=== PATIENT | male | born 2000 | race Caucasian/White ===

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

== ENCOUNTER 2019-06-30 17:25 | Emergency (ER) | payer OTHER ==
[~2019-06-30] VITALS: Ht 177.8 cm; Wt 72.6 kg
[2019-06-30 17:37] VITALS: BP 131/61
--- NOTE | 2019-06-30 17:47 | NUR ---
19 Y/O MALE C/O COUGH, HEADACHE, AND SORE THROAT. STATES DRY, HACKING COUGH. DENIES NASAL CONGESTION. STATES FEVER AND CHILLS SINCE THIS MORNING. DENIES N/V/D. RR EVEN AND UNLABORED, NO ACCESSORY MUSCLE USE. STATES HE HAS NOT TAKEN ANY MEDICATIONS TODAY. SITTING IN D[place] CALM AND PLEASANT. VSS MEDHX: DENIES ALLERGIES: NKA
[2019-06-30 18:32] VITALS: BP 131/61
--- NOTE | 2019-06-30 18:32 | NUR ---
Patient discharged with v/s stable. Written and verbal after care instructions given and explained. Patient alert, oriented and verbalized understanding of instructions. Ambulatory with steady gait. All questions addressed prior to discharge. ID band removed. Patient advised to follow up with PMD. Rx of Ibuprofen 600mg and Promethazine DM 6.25mg was given. Patient educated on indication of medication including possible reaction and side effects. Opportunity to ask questions provided and answered.
== END 2019-06-30 18:32 | disposition home or self-care (01) ==
LOC: MED 17:25
DX: J06.9 Acute upper respiratory infection, unspecified (principal)
CPT/HCPCS: 99283

== ENCOUNTER 2019-07-25 16:02 | Emergency (ER) | payer OTHER ==
[~2019-07-25] VITALS: Ht 177.8 cm; Wt 76.2 kg
[2019-07-25 16:06] VITALS: BP 123/76
--- NOTE | 2019-07-25 16:10 | NUR ---
PT PLACED IN BED 12.
--- NOTE | 2019-07-25 16:12 | NUR ---
Pt c/o left wrist pain x4 days s/p boxing. Denies hx of injury/trauma or fracture on the same wrist. +1 edema on ulnar-sided wrist w/o erthyma, discoloration, or deformity. Reduced ROM noticed. PT DENIES ANY FEVER, CP, SOB, OR COUGH AT THIS TIME; PATIENT STATES PAIN OF 6/10 AT THIS TIME; VSS; PATIENT POSITIONED FOR COMFORT; HOB ELEVATED; BEDRAILS UP X1; BED DOWN. ER MD MADE AWARE OF PT STATUS.
[2019-07-25] MEDS ORDERED: IBUPROFEN 600 MG TAB PO ONE (16:15)
--- NOTE | 2019-07-25 16:48 | NUR ---
JAMIE WRAP PLACED ON PT L WRIST. +CSM
[2019-07-25 16:54] VITALS: BP 120/71
--- NOTE | 2019-07-25 16:54 | NUR ---
Patient discharged with v/s stable. Written and verbal after care instructions given and explained. Patient alert, oriented and verbalized understanding of instructions. Ambulatory with steady gait. All questions addressed prior to discharge. ID band removed. Patient advised to follow up with PMD. Rx of MOTRIN given. Patient educated on indication of medication including possible reaction and side effects. Opportunity to ask questions provided and answered. \ CMS INTACT AFTER JAMIE WRAP APPLICATION BY EMT.
== END 2019-07-25 16:54 | disposition home or self-care (01) ==
LOC: MED 16:02
DX: S63.502A Unspecified sprain of left wrist, initial encounter (principal); X58.XXXA Exposure to other specified factors, initial encounter; Y93.71 Activity, boxing; Y92.89 Other specified places as the place of occurrence of the external cause; Y99.8 Other external cause status
CPT/HCPCS: 73110; 99283

== ENCOUNTER 2020-05-16 17:38 | Emergency (ER) | payer OTHER ==
[~2020-05-16] VITALS: Ht 177.8 cm; Wt 72.6 kg
[2020-05-16 17:51] VITALS: BP 134/78
--- NOTE | 2020-05-16 18:12 | NUR ---
Xray at bedside
[2020-05-16 18:28] VITALS: BP 134/78
--- NOTE | 2020-05-16 18:28 | NUR ---
Patient discharged with v/s stable. Written and verbal after care instructions given and explained. Patient alert, oriented and verbalized understanding of instructions. Ambulatory with steady gait. All questions addressed prior to discharge. ID band removed. Patient advised to follow up with PMD. Rx of Bacitracin 500unit/g and Ibuprofen 400mg was given. Patient educated on indication of medication including possible reaction and side effects. Opportunity to ask questions provided and answered.
== END 2020-05-16 18:28 | disposition home or self-care (01) ==
LOC: MED 17:38
DX: S91.331A Puncture wound without foreign body, right foot, initial encounter (principal); X58.XXXA Exposure to other specified factors, initial encounter; Y93.89 Activity, other specified; Y92.89 Other specified places as the place of occurrence of the external cause; Y99.8 Other external cause status
CPT/HCPCS: 73630; 90471; 90715; 99283

== ENCOUNTER 2021-09-11 23:40 | Emergency (ER) | payer OTHER ==
[~2021-09-11] VITALS: Ht 180.3 cm; Wt 72.6 kg
[2021-09-11 23:45] VITALS: BP 124/68
--- NOTE | 2021-09-11 23:50 | NUR ---
TO LOBBY FOLLOWING TRIAGE
[2021-09-12] MEDS ORDERED: ONDA-188 SL (01:12)
[2021-09-12] MEDS ORDERED: MECL-303 PO (01:12)
--- NOTE | 2021-09-12 01:14 | NUR ---
SEEN BY ERMD NO NURSING INTERVENTIONS PROVIDED FOR PATIENT. PATIENT DISCHARGED BY ERMD.
== END 2021-09-12 01:14 | disposition home or self-care (01) ==
LOC: MED 23:40
DX: H81.10 Benign paroxysmal vertigo, unspecified ear (principal); R11.0 Nausea; Z98.890 Other specified postprocedural states
CPT/HCPCS: 99283

== ENCOUNTER 2022-12-29 21:33 | Emergency (ER) | payer OTHER ==
[~2022-12-29] VITALS: Ht 180.3 cm; Wt 74.8 kg
[~2022-12-29 21:33] MED LIST: MECL-303 PO; ONDA-188 SL
[2022-12-29 21:37] VITALS: BP 134/68; PULSE 78; RESP 16; TEMP 97.7; O2SAT 100
[2022-12-30] MEDS ORDERED: KETOROLAC 30 MG/ML VIAL IM ONE (00:15)
[2022-12-30 00:33] LABS: BASOPHILS # (AUTO) 0.1 K/uL (0.00-0.22); BASOPHILS % (AUTO) 0.7 % (0.0-2.0); EOSINOPHILS # (AUTO) 0.2 K/uL (0-0.4); HEMATOCRIT 41.5 % (36-52); HEMOGLOBIN 14.2 g/dL (12.0-18.0); LYMPHOCYTES # (AUTO) 2.4 K/uL (2.0-11.5); LYMPHOCYTES % (AUTO) 29.8 % (20.5-51.1); MEAN CORPUSCULAR HEMOGLOBIN 29 pg (27-31); MEAN CORPUSCULAR HGB CONC 34 g/dL (33-37); MEAN CORPUSCULAR VOLUME 85.9 fL (80-94); MONOCYTES # (AUTO) 0.9 K/uL (0.8-1.0); MONOCYTES % (AUTO) 10.7 % (1.7-9.3); NEUTROPHILS # (AUTO) 4.6 K/uL (1.8-7.7); NEUTROPHILS % (AUTO) 56.8 % (42.2-75.2); PLATELET COUNT (AUTO) 226 K/uL (140-450); RED BLOOD CELL COUNT(AUTO) 4.83 MIL/uL (4.20-6.10); RED CELL DISTRIBUTION WIDTH 13.1 % (11.6-13.7); WHITE BLOOD COUNT (AUTO) 8.1 K/uL (4.8-10.8)
[2022-12-30 00:48] LABS: ANION GAP 12.4 (8-16); CALCIUM 8.9 mg/dL (8.5-10.1); CARBON DIOXIDE 28.3 mmol/L (21-32); CREATININE 1.3 mg/dL (0.6-1.3); POTASSIUM 3.7 mmol/L (3.5-5.1); TOTAL BILIRUBIN 0.3 mg/dL (0.0-1.0); TOTAL PROTEIN, SERUM 6.9 g/dL (6.4-8.2)
[2022-12-30 01:42] VITALS: O2SAT 100
[2022-12-30 02:09] VITALS: BP 123/78; PULSE 62; RESP 15; O2SAT 99
== END 2022-12-30 02:09 | disposition home or self-care (01) ==
LOC: MED 21:33
DX: R10.11 Right upper quadrant pain (principal); Z79.899 Other long term (current) drug therapy
CPT/HCPCS: 36415; 76705; 80053; 83690; 85025; 96372; 99285; J1885; Q0092